=== PATIENT | female | born 1990 | race Caucasian/White ===

== ENCOUNTER 2017-10-22 22:49 | Emergency (ER) | payer MEDICAID ==
[2017-10-23] MEDS: LIDOCAINE/MYLANTA 40 ML BTL PO (01:17)
[2017-10-23] MEDS: RANITIDINE 150 MG TAB PO (01:17)
== END 2017-10-23 01:59 | disposition home or self-care (01) ==
LOC: FTE 22:49
DX: R10.13 Epigastric pain (principal)
CPT/HCPCS: 99283; Z7610

== ENCOUNTER 2017-11-20 10:23 | Emergency (ER) | payer MEDICAID ==
[2017-11-20] MEDS ORDERED: LIDOCAINE 1% (MDV) 10 ML INJ INFIL (11:31)
[2017-11-20] MEDS: HYDROCODONE/APAP (5/325) TAB PO (11:41)
[2017-11-20] MEDS: ONDANSETRON (ODT) 4 MG TAB ODT (11:41)
[2017-11-20] MEDS: LIDOCAINE 1% (MPF) 5 ML VIAL INJ (12:00)
== END 2017-11-20 13:13 | disposition home or self-care (01) ==
LOC: FTE 10:23
DX: L02.31 Cutaneous abscess of buttock (principal)
CPT/HCPCS: 10060; 99283-25

== ENCOUNTER 2017-11-22 08:19 | Emergency (ER) | payer MEDICAID | END 2017-11-22 09:14 | disposition home or self-care (01) | LOC: FTE 08:19 | DX: Z48.01 Encounter for change or removal of surgical wound dressing (principal) | CPT/HCPCS: 99281; Z7502 ==